=== PATIENT | male | born 1960 | race Caucasian/White ===

== ENCOUNTER 2016-09-18 04:09 | Emergency (ER) | payer SELFPAY ==
[2016-09-18] MEDS ORDERED: DILAUDID 1 MG/ML AMP ONE (06:03)
[2016-09-18] MEDS ORDERED: CYCLOBENZAPRINE 10 MG TAB ONE (06:03)
== END 2016-09-18 07:07 | disposition home or self-care (01) ==
LOC: ER 04:09
DX: G89.29 Other chronic pain (principal); M54.2 Cervicalgia; M51.15 Intervertebral disc disorders with radiculopathy, thoracolumbar region; F17.210 Nicotine dependence, cigarettes, uncomplicated; Z85.05 Personal history of malignant neoplasm of liver
CPT/HCPCS: 96372